=== PATIENT | male | born 1975 | race Caucasian/White ===

== ENCOUNTER → 2020-09-04 | Outpatient (CLI) | payer OTHER ==
[~2020-09-04] MED LIST: AMOX TR-K CLV1 EAC4 PO; FLONASE 0.05% N16 GM; LEVAQUIN750 MG PO; LISINOPRIL-HCT1 EAC2 PO; MAGIC MOUTHWASH PO; SUBOXONE 8 MG-1 EACH PO
== END ==
LOC: CT 12:43
DX: R59.1 Generalized enlarged lymph nodes (principal)
CPT/HCPCS: 71260; Q9967

== ENCOUNTER → 2021-04-15 | Outpatient (CLI) | payer OTHER ==
[2021-04-15 13:09] LABS: HEMOGLOBIN 14.7 gm/dl (14.0-17.5); RED BLOOD COUNT 4.49 M/UL (4.20-5.50); WHITE BLOOD COUNT 10.9 K/UL (4.5-11.0)
[2021-04-15 13:32] LABS: BUN/CREATININE RATIO 25 (0-10)
== END ==
LOC: CT 03-02 13:30
PROVIDERS: Internal Medicine Hematology & Oncology
DX: R59.1 Generalized enlarged lymph nodes (principal)
CPT/HCPCS: 36415; 71250; 80053; 85027; Q9967